=== PATIENT | male | born 1955 | race Caucasian/White ===

== ENCOUNTER → 2024-03-11 | Outpatient (CLI) | payer BC, MEDICARE ==
--- NOTE | 2024-03-12 12:15 | XR ---
EXAMINATION TYPE: XR wrist complete 4 views RT DATE OF EXAM: 03/11/2024 COMPARISON: NONE HISTORY: 68-year-old male M25.531, right wrist pain TECHNIQUE: 4 views FINDINGS: The radiocarpal and distal radial ulnar joint as well as the midcarpal compartment appear i ntact. There is mild to moderate degenerative joint space narrowing at the first CMC joint with shady nal spurring and punctate loose body. No acute fracture, subluxation, or dislocation is seen. IMPRESSION: Moderate first CMC joint OA. No acute osseous abnormality seen.
== END | disposition home or self-care (01) ==
LOC: RADXRMAIN 13:18
PROVIDERS: ATTEND Nurse Practitioner Family
DX: M18.11 Unilateral primary osteoarthritis of first carpometacarpal joint, right hand (principal)